=== PATIENT | female | born 1960 | race Caucasian/White ===

== ENCOUNTER → 2017-04-28 | Outpatient (CLI) | payer OTHER ==
[~2017-04-28] MED LIST: ATIVAN0.5 MG PO; LEXAPRO5 MG PO; ORACEA40 MG PO; TYLENOL EXTRA500 MG PO; VITAMIN D31000 UNIT PO
== END | disposition home or self-care (01) ==
LOC: CDC 11:56
DX: Z01.810 Encounter for preprocedural cardiovascular examination (principal)
CPT/HCPCS: 93000

== ENCOUNTER 2017-05-03 09:13 | Day surgery (SDC) | payer OTHER ==
[2017-05-03] VITALS (7 sets, daily range): BP systolic 94–142; BP diastolic 54–69
[~2017-05-03] VITALS: Ht 154.9 cm; Wt 68.0 kg
[2017-05-04 03:32] VITALS: BP 109/53
[2017-05-04 07:46] VITALS: BP 114/59
[2017-05-04 11:47] VITALS: BP 131/61
== END 2017-05-04 13:15 | disposition home or self-care (01) ==
LOC: SDC → ENRESERV 19:40 → 2EAST 20:43
DX: D27.1 Benign neoplasm of left ovary (principal); R93.8 Abnormal findings on diagnostic imaging of other specified body structures; F41.9 Anxiety disorder, unspecified; Z88.0 Allergy status to penicillin
CPT/HCPCS: 88160; 88305; 88307; G0378; J0690; J1100; J1644; J2001; J2250; J2405; J2710; J3010; J3475; J7120; Q0175